=== PATIENT | female | born 2005 | race Caucasian/White ===

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

== ENCOUNTER 2024-03-08 19:18 | Emergency (ER) | payer OTHER ==
[2024-03-08] MEDS ORDERED: Ibuprofen 800 MG TAB ONE (19:36)
[2024-03-08] MEDS ORDERED: Boostrix 0.5 ML (Tdap) VIAL (>/=7 yrs of age) ONE (20:15)
[2024-03-08] MEDS ORDERED: Acetaminophen 500 MG TAB ONE (21:01)
== END 2024-03-08 21:07 | disposition home or self-care (01) ==
LOC: MADERS 19:18
DX: S93.402A Sprain of unspecified ligament of left ankle, initial encounter (principal); W20.8XXA Other cause of strike by thrown, projected or falling object, initial encounter
CPT/HCPCS: 90471; 90715

== ENCOUNTER 2024-03-15 10:13 | Emergency (ER) | payer OTHER ==
[2024-03-15] MEDS ORDERED: Ketorolac Tromethamine 30 MG (1 mL) VIAL ONE (11:57)
== END 2024-03-15 12:12 | disposition home or self-care (01) ==
LOC: MADERS 10:13
DX: S90.32XA Contusion of left foot, initial encounter (principal); X58.XXXA Exposure to other specified factors, initial encounter
CPT/HCPCS: 29515; 96372; J1885

== ENCOUNTER 2025-04-05 22:34 | Emergency (ER) | payer OTHER ==
[2025-04-05] MEDS ORDERED: Albuterol 200 PUFF (6.7GM INHALER) ONE (22:52)
[2025-04-05] MEDS ORDERED: Dexamethasone 10 MG/ML VIAL ONE (22:52)
== END 2025-04-05 23:22 | disposition home or self-care (01) ==
LOC: MADERS 22:34
DX: J30.1 Allergic rhinitis due to pollen (principal); G40.909 Epilepsy, unspecified, not intractable, without status epilepticus
CPT/HCPCS: 96374; J1100

== ENCOUNTER 2025-07-25 13:20 | Emergency (ER) | payer OTHER | END 2025-07-25 14:30 | disposition home or self-care (01) | LOC: MADERS 13:20 | DX: L50.9 Urticaria, unspecified (principal) | CPT/HCPCS: 99282 ==